=== PATIENT | male | born 1955 | race African-American/Black ===

== ENCOUNTER 2018-05-07 11:25 | Emergency (ER) | payer MEDICAID ==
[~2018-05-07] VITALS: Ht 195.6 cm; Wt 117.9 kg
[2018-05-07] MEDS ORDERED: NKM (11:35)
[2018-05-07 11:41] VITALS: BP 191/75
[2018-05-07] MEDS ORDERED: Sodium Chloride 500ML 500 ML IV ONE (11:47)
[2018-05-07 12:12] LABS: BASOPHILS % (AUTO) 0.9 % (0.0-2.0); HEMATOCRIT 41.1 % (42.0-52.0); HEMOGLOBIN 14.3 G/DL (14.2-18.0); MEAN CORPUSCULAR VOLUME 83 FL (80-99); MONOCYTES % (AUTO) 9.5 % (1.0-10.0); NEUTROPHILS % (AUTO) 81.6 % (45.0-75.0); PLATELET COUNT 130 K/UL (150-450); RED BLOOD COUNT 4.95 M/UL (4.70-6.10); WHITE BLOOD COUNT 7.8 K/UL (4.8-10.8)
--- NOTE | 2018-05-07 12:13 | Emergency Room Report ---
History of Present Illness General Chief Complaint: Generalized Weakness Source: Patient Present Illness HPI Patient presents with reports of dizziness and unstable gait Patient feels lightheaded at times Reports that symptoms started about 3 days ago denies any recent fall or trauma Denies any chest pain he has some increased nausea denies any diarrhea denies any focal weakness denies any change in medications patient reports that he did have a low-grade fever at home Denies any dysuria Denies any neck pain or photophobia Allergies: Coded Allergies: No Known Allergies (Unverified , 05/07/18) Patient History Past Medical History: see triage record Pertinent Family History: none Reviewed Nursing Documentation: PMH: Agreed; PSxH: Agreed Nursing Documentation-PMH Past Medical History: No History, Except For Hx Hypertension: Yes Hx Asthma: Yes Review of Systems All Other Systems: negative except mentioned in HPI Physical Exam Vital Signs Date Time Temp Pulse Resp B/P (MAP) Pulse Ox O2 Delivery O2 Flow Rate FiO2 05/07/18 11:31 102.7 100 24 184/97 92 Room Air Sp02 EP Interpretation: reviewed, normal General Appearance: well appearing, no apparent distress Head: normocephalic, atraumatic Eyes: bilateral eye PERRL, bilateral eye EOMI ENT: hearing grossly normal, normal pharynx, TMs + canals normal, uvula midline Neck: full range of motion, supple, no meningismus, no bony tend Respiratory: lungs clear, normal breath sounds, no rhonchi, no respiratory distress, no retraction, no accessory muscle use Cardiovascular #1: normal peripheral pulses, regular rate, rhythm, no edema, no gallop, no JVD, no murmur Gastrointestinal: normal bowel sounds, non tender, soft, no mass, no organomegaly, non-distended, no guarding, no hernia, no pulsatile mass, no rebound Genitourinary: no CVA tenderness Musculoskeletal: normal inspection Neurologic: oriented x3, responsive, 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 tested, motor strength/ tone normal, sensory intact Psychiatric: mood/affect normal Skin: normal color, no rash, warm/dry, palpation normal Lymphatic: normal inspection, no adenopathy Procedures Critical Care Time Critical Care Time Critical care: 50 minutes for multiple re-evaluations, findings concerning for end organ injury and cardiac injury leading to possible cardiac not including any procedural time Medical Decision Making Diagnostic Impression: Primary Impression: Elevated troponin Additional Impressions: Pneumonia posible cva ER Course Patient is a fairly complex patient with multiple differential to consideration including but not limited to cardiac cardiopulmonary and vascular emergencies Given the patient's unstable sensation and report CT head was also obtained Radiology reads possible lacunar infarct is not appear to be acute however subacute Patient's last known well was over 3 days ago, putting the patient outside the window for any acute thrombolytic therapy Blood work is significantly abnormal including elevated troponin levels along with kidney function and renal function tests Raising concern of hepatorenal injury with cardiac pathology patient receiving aspirin at this time antibiotics after blood culture and lactic acid patient is critical requiring further inpatient care Remains hemodynamically stable otherwise Labs Test 05/07/18 11:51 05/07/18 13:00 White Blood Count 7.8 K/UL (4.8-10.8) Red Blood Count 4.95 M/UL (4.70-6.10) Hemoglobin 14.3 G/DL (14.2-18.0) Hematocrit 41.1 % (42.0-52.0) Mean Corpuscular Volume 83 FL (80-99) Mean Corpuscular Hemoglobin 28.9 PG (27.0-31.0) Mean Corpuscular Hemoglobin Concent 34.7 G/DL (32.0-36.0) Red Cell Distribution Width 12.0 % (11.6-14.8) Platelet Count 130 K/UL (150-450) Mean Platelet Volume 9.1 FL (6.5-10.1) Neutrophils (%) (Auto) 81.6 % (45.0-75.0) Lymphocytes (%) (Auto) 8.0 % (20.0-45.0) Monocytes (%) (Auto) 9.5 % (1.0-10.0) Eosinophils (%) (Auto) 0.0 % (0.0-3.0) Basophils (%) (Auto) 0.9 % (0.0-2.0) Sodium Level 139 MMOL/L (136-145) Potassium Level 3.5 MMOL/L (3.5-5.1) Chloride Level 102 MMOL/L (98-107) Carbon Dioxide Level 27 MMOL/L (21-32) Anion Gap 10 mmol/L (5-15) Blood Urea Nitrogen 22 mg/dL (7-18) Creatinine 2.2 MG/DL (0.55-1.30) Estimat Glomerular Filtration Rate 30.3 mL/min (>60) Glucose Level 138 MG/DL (74-106) Calcium Level 8.5 MG/DL (8.5-10.1) Total Bilirubin 1.8 MG/DL (0.2-1.0) Direct Bilirubin 1.0 MG/DL (0.0-0.3) Aspartate Amino Transf (AST/SGOT) 107 U/L (15-37) Alanine Aminotransferase (ALT/SGPT) 152 U/L (12-78) Alkaline Phosphatase 70 U/L (46-116) Total Creatine Kinase 1648 U/L (26-308) Creatine Kinase MB 2.1 NG/ML (0.0-3.6) Creatine Kinase MB Relative Index 0.1 Troponin I 0.178 ng/mL (0.000-0.056) Total Protein 8.9 G/DL (6.4-8.2) Albumin 3.4 G/DL (3.4-5.0) Globulin 5.5 g/dL Albumin/Globulin Ratio 0.6 (1.0-2.7) Lipase 860 U/L (73-393) EKG Diagnostic Results Rate: normal Rhythm: NSR ST Segments: other - Nonspecific ST T-wave changes Rhythm Strip Diag. Results EP Interpretation: yes Rate: 77 Rhythm: NSR, no PVC's, no ectopy Chest X-Ray Diagnostic Results Chest X-Ray Diagnostic Results : Chest X-Ray Ordered: Yes # of Views/Limited/Complete: 1 View Indication: Chest Pain EP Interpretation: Yes Interpretation: no effusion, no pneumothorax, other - Left-sided haziness question and infiltrated Impression: Other - Left-sided pneumonia Electronically Signed by: Quentin Hackett DO CT/MRI/US Diagnostic Results CT/MRI/US Diagnostic Results : Impression CT headImpression: Minimal age-related changes, as described Subtle low-attenuation within the right neal, probably artifactual but small lacunar infarct possible Negative for acute intracranial bleed or mass effect Last Vital Signs Date Time Temp Pulse Resp B/P (MAP) Pulse Ox O2 Delivery O2 Flow Rate FiO2 05/07/18 11:41 93 30 Room Air 05/07/18 11:41 102.7 191/75 95 Status: improved Disposition: XFER SHT-TRM HOSP Condition: Serious Quentin Hackett DO May 07, 2018 12:13
[2018-05-07 12:24] LABS: ANION GAP 10 mmol/L (5-15); BLOOD UREA NITROGEN 22 mg/dL (7-18); CALCIUM 8.5 MG/DL (8.5-10.1); CARBON DIOXIDE 27 MMOL/L (21-32); CHLORIDE 102 MMOL/L (98-107); CREATININE 2.2 MG/DL (0.55-1.30); POTASSIUM 3.5 MMOL/L (3.5-5.1); SODIUM 139 MMOL/L (136-145)
--- NOTE | 2018-05-07 12:34 | Diagnostic Imaging Report ---
Indications: Dizziness Technique: Spiral acquisitions obtained through the brain. Angled axial and coronal 5 x 5 mm slices were reconstructed. Total dose length product 1467.01 mGycm. CTDI vol(s) 70.38 mGy. Dose reduction achieved using automated exposure control Comparison: None. Findings: Ventricles and extra-axial CSF spaces are within normal limits for age. There is minimal periventricular deep white matter low-attenuation, consistent with chronic ischemic change. Intact calvarium. No acute intercranial hemorrhage or edema. No mass effect nor midline shift. Questionable lacunar infarct versus, more likely, artifact, seen in the right neal. The included orbits are unremarkable. The included sinuses are clear. The mastoids are clear. Impression: Minimal age-related changes, as described Subtle low-attenuation within the right neal, probably artifactual but small lacunar infarct possible Negative for acute intracranial bleed or mass effect The CT scanner at [facility] is accredited by the [employer] and the scans are performed using protocols designed to limit radiation exposure to as low as reasonably achievable to attain images of sufficient resolution adequate for diagnostic evaluation.
[2018-05-07 12:38] LABS: ALANINE AMINOTRANSFERASE 152 U/L (12-78); ALBUMIN 3.4 G/DL (3.4-5.0); ALBUMIN/GLOBULIN RATIO 0.6 (1.0-2.7); ALKALINE PHOSPHATASE 70 U/L (46-116); ASPARTATE AMINO TRANSFERASE 107 U/L (15-37); BILIRUBIN,TOTAL 1.8 MG/DL (0.2-1.0); CKMB 2.1 NG/ML (0.0-3.6); CREATINE KINASE 1648 U/L (26-308)
--- NOTE | 2018-05-07 12:45 | Diagnostic Imaging Report ---
Indication: Chest pain Technique: One view of the chest Comparison: none Findings: Interstitial infiltrates are seen in the left midlung. The right lung, bilateral pleural spaces are clear. The heart is mildly enlarged. Impression: Left perihilar interstitial infiltrates, versus edema. Mild cardiomegaly
[2018-05-07 14:17] VITALS: BP 153/75
[2018-05-07 14:52] VITALS: BP 146/83
[2018-05-07 15:38] VITALS: BP 146/83
== END 2018-05-07 15:30 | disposition short-term general hospital (02) ==
LOC: EMR 12:40
DX: J18.9 Pneumonia, unspecified organism (principal); R79.89 Other specified abnormal findings of blood chemistry; I10 Essential (primary) hypertension
CPT/HCPCS: 36415; 70450; 71045; 80053; 82248; 82550; 82553; 83605; 83690; 84484; 85025; 87040; 93005; 96361; 96365; 99291; J1956; J7040